=== PATIENT | female | born 1980 | race Caucasian/White ===

== ENCOUNTER → 2019-05-21 | Outpatient (CLI) | payer BC ==
--- NOTE | 2019-05-22 14:26 | MM ---
Reason for exam: screening (asymptomatic). History: Family history of breast cancer in maternal aunt and breast cancer in paternal aunt. Physical Findings: A clinical breast exam by your physician is recommended on an annual basis and results should be correlated with mammographic findings. MG Screening Mammo w CAD Bilateral CC and MLO view(s) were taken. No prior studies available for comparison. The breast tissue is heterogeneously dense. This may lower the sensitivity of mammography. No suspicious abnormality. ASSESSMENT: Negative, BI-RAD 1 RECOMMENDATION: Routine screening mammogram of both breasts in 1 year.
== END | disposition home or self-care (01) ==
LOC: RADMAMWWP 07:49
PROVIDERS: ATTEND Obstetrics & Gynecology
DX: Z12.31 Encounter for screening mammogram for malignant neoplasm of breast (principal); Z80.3 Family history of malignant neoplasm of breast
CPT/HCPCS: 77067

== ENCOUNTER → 2019-10-16 | Outpatient (CLI) | payer BC ==
[2019-10-16 15:03] LABS: Basophils % (A) 1 %; Eosinophils # (A) 0.5 k/uL (0-0.7); Eosinophils % (A) 8 %; HCT 38.2 % (34.0-46.0); HGB 12.1 gm/dL (11.4-16.0); Lymphocytes # (A) 2.1 k/uL (1.0-4.8); Lymphocytes % (A) 33 %; MCH 28.4 pg (25.0-35.0); MCHC 31.7 g/dL (31.0-37.0); MCV 89.4 fL (80.0-100.0); Mean Platelet Volume 6.9; Monocytes # (A) 0.2 k/uL (0-1.0); Monocytes % (A) 4 %; Neutrophils # (A) 3.5 k/uL (1.3-7.7); Neutrophils % (A) 54 %; Platelet Count 367 k/uL (150-450); RBC 4.27 m/uL (3.80-5.40); RDW 14.5 % (11.5-15.5); WBC 6.5 k/uL (3.8-10.6)
== END | disposition home or self-care (01) ==
LOC: LABPAT 14:21
PROVIDERS: ATTEND Obstetrics & Gynecology
DX: Z01.818 Encounter for other preprocedural examination (principal); N92.0 Excessive and frequent menstruation with regular cycle; N94.6 Dysmenorrhea, unspecified
CPT/HCPCS: 36415; 85025

== ENCOUNTER 2019-10-20 07:42 | Day surgery (SDC) | payer BC ==
--- NOTE | 2019-10-16 08:40 | HP ---
HISTORY AND PHYSICAL DATE OF SURGERY: 10/19/2009 This is a 39-year-old white female 4, para 4-0-0-4, last menstrual period 2 weeks prior. Patient has a history of dysmenorrhea and menometrorrhagia and presents for hysteroscopy and NovaSure endometrial ablation. Endometrial biopsy has been performed and is benign. The patient understands that is not advised after this procedure as the endometrium has been permanently altered. All questions regarding procedure and anesthesia have been addressed. PAST MEDICAL HISTORY: Significant for gestational diabetes in 2016. PAST SURGICAL HISTORY: section 2016, paratubal cyst excised 2016, and wisdom teeth extracted in the past. CURRENT MEDICATIONS: Motrin as needed, woman's multivitamin daily. ALLERGIES: Include CODEINE to which there is an unrecorded reaction. FAMILY HISTORY: Significant for hypertension, diabetes, diverticulitis, breast and anal cancer. Reproductive history is significant for vaginal deliveries x3, and section x1, all unremarkable. SOCIAL HISTORY: Patient is , she rarely drinks alcohol, she has never been a smoker and denies drug use. PHYSICAL EXAM: Patient is 5 foot 2 inches, 147 pounds, blood pressure 122/70. HEENT: Examination is negative, good dentition, no thyromegaly. CHEST: Clear in all lyman anteriorly and posteriorly. CARDIAC EXAM: Reveals a regular rate and rhythm without murmur, click, or rub. Breast exam is negative, breasts are symmetric with no masses. Skin dimpling or nipple discharge. ABDOMEN: Soft and nontender, no organosplenomegaly, no CVA tenderness, active bowel sounds. EXTREMITIES: Reveal no edema, there are good peripheral pulses. PELVIC EXAM: The cervix is multiparous, Pap smear is up to date and normal. Uterus is small, anteverted, anteflexed, mobile, smooth, and nontender. Adnexa are negative for masses or tenderness bilaterally. IMPRESSION: Dysmenorrhea and menometrorrhagia, here for NovaSure ablation and hysteroscopy. PLAN: Patient understands the risks, benefits, and alternatives to this procedure. All questions answered. Information reviewed per patient satisfaction. We will proceed with surgery as noted above. MMODL / IJN: [id number] /
[2019-10-17 08:35] VITALS: BMI 27.5
[~2019-10-20 07:42] MED LIST: DEXAMETHASONE SOD PHOSPHATE 10 MG/ML 1 ML VIAL IV ONE; HYDROmorphone 0.5 MG/0.5 ML SYRINGE IVP PRN; LACTATED RINGERS 1,000 ML IV SCH; LIDOCAINE 1% (10MG/ML) FOR IV START INTRADERMA PRN; MIDAZOLAM 2 MG/2 ML VIAL IV PRN; Pre Op ABX Message 1 EACH MISC MISCELLANE ONE; fentaNYL (PF) 50 MCG/ML 2 ML AMP IVP PRN
[2019-10-20 08:09] VITALS: RESP 16
[2019-10-20] MEDS ORDERED: ONDANSETRON 4 MG/2 ML VIAL IVP ONE (08:21)
[2019-10-20] MEDS ORDERED: MIDAZOLAM 2 MG/2 ML VIAL ONE (08:55)
[2019-10-20] MEDS ORDERED: fentaNYL (PF) 50 MCG/ML 2 ML AMP ONE (08:55)
[2019-10-20] MEDS ORDERED: PROPOFOL 10 MG/ML 20 ML VIAL IV ONE (08:55)
[2019-10-20] MEDS ORDERED: KETOROLAC 30 MG/ML 1 ML VIAL ONE (08:55)
[2019-10-20] MEDS ORDERED: LIDOCAINE 1% INJ 10MG/ML (20 ML MDV) ONE (08:55)
--- NOTE | 2019-10-20 09:28 | P.OP ---
Date of Procedure: 10/20/19 Preoperative Diagnosis: Menorrhagia, dysmenorrhea. Postoperative Diagnosis: Same, grade 3 rectocele, grade 3 uterine prolapse. Normal-appearing intrauterine cavity. Procedure(s) Performed: Hysteroscopy, NovaSure endometrial ablation Anesthesia: MIGUELINA Surgeon: Amy Crowder Estimated Blood Loss (ml): 5 IV fluids (ml): 300 Urine output (ml): 300 Pathology: none sent Condition: stable Disposition: PACU Operative Findings: Grade 3 rectocele, grade 3 uterine prolapse, negative adnexa, negative intrauterine cavity. Description of Procedure: Patient is brought to the operating suite where a general anesthetic is administered without difficulty. She's placed in the dorsal lithotomy position. The cervix, vagina, perineal bodies are all prepped and draped in usual sterile fashion. The appropriate timeout is performed. Urine hCG is negative. Toradol is given. The bladder is drained for approximately 300 mL of clear yellow urine. Weighted speculum was placed into the vagina and the anterior lip of the cervix is grasped with a double-tooth tenaculum. Uterus sounds to a depth of 10 cm in the anteverted position. There is a grade 3 uterine prolapse as well as a grade 3 rectocele noted. The cervix is gently and easily dilated with Hanks dilators with very little resistance. The hysteroscope was introduced and the cavity is distended using sterile saline. Inspection of the cavity reveals proliferative-type appearing tissue, no polyps, fibroids, septa, or defects. Hysteroscope was removed. The NovaSure wand is then placed and seated. Uterine length of 6.5 cm, width of 4.4 cm is noted and calibrated. Machine is properly enabled. For 87 seconds and a power of the 157 W the procedure is carried out. When the machine shuts off the wand is reduced and removed. Hysteroscope was once again placed and the cavity is noted to be uniformly blanched. Anterior lip of the cervix is clean and dry. All sponge needle and enhancement counts are correct at the end of the procedure. Patient is brought back to recovery room in very good condition with stable vital signs. Toradol has been given. Blood pressure upon leaving the OR 99/51, pulse 78, 97% O2 saturation. Patient will follow-up with me in the office in 2 weeks. Written instructions are reviewed.
[2019-10-20 09:35] VITALS: TEMP 97.3
[2019-10-20 10:42] VITALS: BP 114/75; PULSE 83
== END 2019-10-20 10:57 | disposition home or self-care (01) ==
LOC: OR 07:42
PROVIDERS: ATTEND Obstetrics & Gynecology
DX: N92.0 Excessive and frequent menstruation with regular cycle (principal); N94.6 Dysmenorrhea, unspecified; N81.3 Complete uterovaginal prolapse; E07.9 Disorder of thyroid, unspecified; Z91.012 Allergy to eggs; Z91.018 Allergy to other foods; Z79.890 Hormone replacement therapy; Z98.818 Other dental procedure status; Z98.891 History of uterine scar from previous surgery; Z88.5 Allergy status to narcotic agent; Z86.32 Personal history of gestational diabetes; Z82.49 Family history of ischemic heart disease and other diseases of the circulatory system; Z83.3 Family history of diabetes mellitus; Z80.3 Family history of malignant neoplasm of breast; Z80.0 Family history of malignant neoplasm of digestive organs; Z83.79 Family history of other diseases of the digestive system
CPT/HCPCS: 81025; 58563; J2250; J1100; J2405; J2001; J3010; J1885; J2704

== ENCOUNTER → 2020-10-11 | Outpatient (CLI) | payer BC ==
--- NOTE | 2020-10-12 14:58 | MM ---
Reason for exam: screening (asymptomatic). Last mammogram was performed 1 year and 5 months ago. History: Family history of breast cancer in maternal aunt and breast cancer in paternal aunt. Took hormonal contraceptives for 5 years. Physical Findings: A clinical breast exam by your physician is recommended on an annual basis and results should be correlated with mammographic findings. MG Screening Mammo w CAD Bilateral CC and MLO view(s) were taken. Prior study comparison: May 21, 2019, bilateral MG screening mammo w CAD. There are scattered fibroglandular densities. No significant changes when compared with prior studies. ASSESSMENT: Benign, BI-RAD 2 RECOMMENDATION: Routine screening mammogram of both breasts in 1 year.
== END | disposition home or self-care (01) ==
LOC: RADMAMWWP 13:44
PROVIDERS: ATTEND Obstetrics & Gynecology
DX: Z12.31 Encounter for screening mammogram for malignant neoplasm of breast (principal); Z80.3 Family history of malignant neoplasm of breast
CPT/HCPCS: 77067

== ENCOUNTER → 2022-08-22 | Outpatient (CLI) | payer BC ==
--- NOTE | 2022-08-23 21:32 | MM ---
Reason for Exam: Screening (asymptomatic). Last mammogram was performed 1 year(s) and 10 month(s) ago. Patient History: Menarche at age 12. First Full-Term at age 23. Patient has history of breast feeding. Patient used Hormonal Contraceptives for 5 years. Paternal aunt had breast cancer. Maternal aunt had breast cancer. Last menstrual period: 07/30/2022 Risk Values: Suma 5 year model risk: 0.6%. NCI Lifetime model risk: 8.8%. Prior Study Comparison: 05/21/2019 Bilateral Screening Mammogram, [facility]. 10/11/2020 Bilateral Screening Mammogram, [facility]. Tissue Density: There are scattered fibroglandular densities. Findings: Analyzed By CAD. There are areas of asymmetric density redemonstrated which appear unchanged when compared to the 2 prior studies. No significant change from prior exams. Overall Assessment: Benign, BI-RAD 2 Management: Screening Mammogram of both breasts in 1 year. 1. Patient should continue monthly self breast exams. 2. A clinical breast exam by your physician is recommended on an annual basis. 3. This exam should not preclude additional follow-up of suspicious palpable abnormalities. Electronically signed and approved by: Amaris Ann M.D. Radiologist
== END | disposition home or self-care (01) ==
LOC: RADMAMWWP 11:37
PROVIDERS: ATTEND Pediatrics
DX: Z12.31 Encounter for screening mammogram for malignant neoplasm of breast (principal); Z80.3 Family history of malignant neoplasm of breast
CPT/HCPCS: 77067

== ENCOUNTER → 2023-10-22 | Outpatient (CLI) | payer BC ==
--- NOTE | 2023-10-24 12:55 | MM ---
Reason for Exam: Screening (asymptomatic). Last mammogram was performed 1 year(s) and 2 month(s) ago. Patient History: Menarche at age 12. First Full-Term at age 23. Patient has history of breast feeding. Patient used Hormonal Contraceptives for 5 years. Paternal aunt had breast cancer. Maternal aunt had breast cancer. Last menstrual period: 10/21/2023 Risk Values: Suma 5 year model risk: 0.7%. NCI Lifetime model risk: 8.7%. Prior Study Comparison: 05/21/2019 Bilateral Screening Mammogram, [facility]. 10/11/2020 Bilateral Screening Mammogram, [facility]. 08/22/2022 Bilateral MG screening mammo w CAD, [facility]. Tissue Density: There are scattered areas of fibroglandular density. Findings: Analyzed By CAD. There is no suspicious group of microcalcifications or new suspicious mass. Overall Assessment: Negative, BI-RAD 1 Management: Screening Mammogram of both breasts in [address] [facility] will attempt to contact patient to return for supplemental views and ultrasound if indicated. Patient should continue monthly self-breast exams. A clinical breast exam by your physician is recommended on an annual basis. This exam should not preclude additional follow-up of suspicious palpable abnormalities. Note on Suma scores and lifetime risk: 1. A Suma score greater than 3% is considered moderate risk. If this is the case, consider specialist referral to assess eligibility for a risk reducing agent. 2. If overall lifetime risk for the development of breast cancer is 20% or higher, the patient may qualify for future screening with alternating mammogram and breast MRI. Electronically signed and approved by: Dale Barreto DO
== END | disposition home or self-care (01) ==
LOC: RADMAMWWP 14:38
PROVIDERS: ATTEND Pediatrics
DX: Z12.31 Encounter for screening mammogram for malignant neoplasm of breast (principal); Z78.0 Asymptomatic menopausal state; Z80.3 Family history of malignant neoplasm of breast
CPT/HCPCS: 77067

== ENCOUNTER 2023-12-07 12:25 | Day surgery (SDC) | payer BC ==
[2023-12-05 11:38] VITALS: BMI 26.5
[~2023-12-07 12:25] MED LIST changes: -DEXAMETHASONE SOD PHOSPHATE 10 MG/ML 1 ML VIAL IV ONE; -HYDROmorphone 0.5 MG/0.5 ML SYRINGE IVP PRN; -LACTATED RINGERS 1,000 ML IV SCH; -MIDAZOLAM 2 MG/2 ML VIAL IV PRN; -Pre Op ABX Message 1 EACH MISC MISCELLANE ONE; -fentaNYL (PF) 50 MCG/ML 2 ML AMP IVP PRN
[2023-12-07] MEDS: LACTATED RINGERS 1,000 ML IV SCH (13:50)
[2023-12-07 14:01] VITALS: RESP 16; TEMP 98.1
[2023-12-07] MEDS ORDERED: PROPOFOL 10 MG/ML 20 ML VIAL IV ONE (14:45)
--- NOTE | 2023-12-07 15:07 | P.PCN ---
Date of Procedure: 12/07/23 Procedure(s) Performed: BRIEF HISTORY: Patient is a 43-year-old pleasant white female scheduled for an elective colonoscopy as a part of screening for colon cancer. PROCEDURE PERFORMED: Colonoscopy with biopsy. PREOPERATIVE DIAGNOSIS: Screening for colon cancer. IV sedation per Anesthesia. PROCEDURE: After informed consent was obtained, the patient, was brought into the endoscopy unit. IV sedation was administered by Anesthesia under continuous monitoring. Digital rectal examination was normal. Initially the Olympus CF-160 flexible video colonoscope was then inserted in the rectum, gradually advanced into the cecum without any difficulty. Careful examination was performed as the scope was gradually being withdrawn. Ileocecal valve and the appendiceal orifice were visualized and appeared normal. Prep was excellent. Mucosa of the cecum, had to small polyps measuring 3 and 4 mm in size both of which were removed by cold biopsy. Rest of the ascending colon, transverse colon, mild. In the descending colon there was a 3 mm polyp removed by cold biopsy. Rest of the descending colon, sigmoid colon, and rectum appeared normal. Retroflexion was performed in the rectum and no lesions were seen. The patient tolerated the procedure well. IMPRESSION: 3 mm and 4 mm cecal polyp s/p cold biopsy 3 mm descending colon polyp status post cold biopsy. RECOMMENDATIONS: Findings of this examination were discussed with the patient as well as her family. She was advised to follow-up with the biopsy results. If the biopsy reveals adenoma she can have repeat colonoscopy in 5 years..
[2023-12-07 16:08] VITALS: BP 104/68; PULSE 56
== END 2023-12-07 15:57 | disposition home or self-care (01) ==
LOC: ORWHC2ENDO 12:25
PROVIDERS: ATTEND Internal Medicine Gastroenterology
DX: Z12.11 Encounter for screening for malignant neoplasm of colon (principal); D12.0 Benign neoplasm of cecum; D12.4 Benign neoplasm of descending colon; E07.9 Disorder of thyroid, unspecified; Z88.5 Allergy status to narcotic agent; Z91.012 Allergy to eggs; Z79.890 Hormone replacement therapy; Z79.899 Other long term (current) drug therapy
CPT/HCPCS: 81025; 88305; 45380; J2704

== ENCOUNTER → 2024-09-09 | Outpatient (CLI) | payer BC ==
--- NOTE | 2024-09-09 08:44 | US ---
EXAMINATION TYPE: US abdomen limited DATE OF EXAM: 09/09/2024 COMPARISON: NONE CLINICAL INDICATION: Female, 44 years old with history of R74.8 ELEVATED LFT'S; Abnormal labs TECHNIQUE: Grayscale and color Doppler imaging of the right upper quadrant was performed. FINDINGS: EXAM MEASUREMENTS: Liver Length: 18.1 cm Gallbladder Wall: 0.1 cm CBD: 0.3 cm Right Kidney: 10.2 x 4.8 x 3.6 cm Pancreas: Echogenic in appearance. Liver: Enlarged in size. Echogenic. Gallbladder: No stones or wall thickening seen Evidence for sonographic Tomlinson's sign: neg CBD: wnl Right Kidney: Medial anechoic lesion at hilum IMPRESSION: 1. Hepatomegaly [facility] Jairo Roberts, , 09/09/2024 8:42 AM
[2024-09-09 19:46] LABS: Hepatitis A Antibody IgM Nonreactive (Nonreactive); Hepatitis B Core IgM Nonreactive (Nonreactive); Hepatitis B Surface Antigen Nonreactive (Nonreactive); Hepatitis C IgG Antibody Nonreactive (Nonreactive)
== END | disposition home or self-care (01) ==
LOC: RADUSWWP 08:08
PROVIDERS: ATTEND Pediatrics
DX: R16.0 Hepatomegaly, not elsewhere classified (principal); R74.8 Abnormal levels of other serum enzymes
CPT/HCPCS: 76705; 80074

== ENCOUNTER → 2025-01-27 | Outpatient (CLI) | payer BC ==
--- NOTE | 2025-01-27 13:46 | MM ---
Reason for Exam: Screening (asymptomatic). Last mammogram was performed 1 year(s) and 3 month(s) ago. Patient History: Menarche at age 12. First Full-Term at age 23. Premenopausal. Patient has history of breast feeding. Patient used Hormonal Contraceptives for 5 years. Paternal aunt had breast cancer, age 60. Maternal aunt had breast cancer, age 45. Risk Values: Suma 5 year model risk: 0.7%. NCI Lifetime model risk: 8.6%. Prior Study Comparison: 10/11/2020 Bilateral Screening Mammogram, [facility]. 08/22/2022 Bilateral MG screening mammo w CAD, [facility]. 10/22/2023 Bilateral MG screening mammo w CAD, [facility]. Tissue Density: The breasts are heterogeneously dense, which may obscure small masses. Findings: Analyzed By CAD. Right breast: There is no suspicious group of microcalcifications or new suspicious mass. Left breast: There is no suspicious group of microcalcifications or new suspicious mass. Overall Assessment: Negative, BI-RAD 1 Management: Screening Mammogram of both breasts in [address] [facility] will attempt to contact patient to return for supplemental views and ultrasound if indicated. Patient should continue monthly self-breast exams. A clinical breast exam by your physician is recommended on an annual basis. This exam should not preclude additional follow-up of suspicious palpable abnormalities. Note on Suma scores and lifetime risk: 1. A Suma score greater than 3% is considered moderate risk. If this is the case, consider specialist referral to assess eligibility for a risk reducing agent. 2. If overall lifetime risk for the development of breast cancer is 20% or higher, the patient may qualify for future screening with alternating mammogram and breast MRI. [facility], , 01/27/2025 1:43 PM. Electronically signed and approved by: Dale Barreto DO
== END | disposition home or self-care (01) ==
LOC: RADMAMWWP 12:00
PROVIDERS: ATTEND Pediatrics
DX: Z12.31 Encounter for screening mammogram for malignant neoplasm of breast (principal); R92.333 Mammographic heterogeneous density, bilateral breasts; Z92.0 Personal history of contraception; Z80.3 Family history of malignant neoplasm of breast
CPT/HCPCS: 77067